=== PATIENT | female | born 1950 | race Two or more races ===

== ENCOUNTER 2020-01-04 09:25 | Outpatient (CLI) | payer OTHER | END 2020-01-04 09:34 | disposition home or self-care (01) | LOC: SONOGRAMA 09:25 | PROVIDERS: ATTEND Pathology Anatomic Pathology & Clinical Pathology | DX: E04.1 Nontoxic single thyroid nodule (principal) ==

== ENCOUNTER 2020-03-17 12:18 | Outpatient (CLI) | payer OTHER | END 2020-03-17 12:25 | disposition home or self-care (01) | LOC: SONOGRAMA 12:18 | PROVIDERS: ATTEND Pathology Anatomic Pathology & Clinical Pathology | DX: E04.2 Nontoxic multinodular goiter (principal); D34 Benign neoplasm of thyroid gland; E04.8 Other specified nontoxic goiter ==